=== PATIENT | female | born 1965 | race African-American/Black ===

== ENCOUNTER 2017-01-22 03:20 | Inpatient (IN) | payer OTHER, MEDICARE ==
[2017-01-22] VITALS (13 sets, daily range): BP systolic 114–241; BP diastolic 62–130; PULSE 65–98; RESP 16–22; TEMP 97.7–101.2; O2SAT 96–100
[~2017-01-22] VITALS: Ht 170.2 cm; Wt 70.0 kg
[~2017-01-22 03:20] MED LIST: CLON-481 PO; DOXA1 PO; FERR65TA PO; FURO1TAB93 PO; HYDR100T2 PO; KLOR20TA6 PO; LABE200 PO; LOSA25TA31 PO; PRED5TAB PO; TRAM100T19 PO
[2017-01-22] MEDS ORDERED: PANT40TA3 PO (04:00)
[2017-01-22] MEDS ORDERED: PRED5TAB PO (04:00)
[2017-01-22] MEDS ORDERED: LABE200T2 PO (04:00)
[2017-01-22] MEDS ORDERED: CLON0.3T PO (04:00)
[2017-01-22] MEDS ORDERED: LOSA25TA PO (04:00)
[2017-01-22] MEDS ORDERED: DOXA1TAB43 PO (04:00)
[2017-01-22] MEDS ORDERED: HYDR-3801 PO (04:00)
[2017-01-22] MEDS ORDERED: MYCO500T PO (04:00)
[2017-01-22] MEDS ORDERED: ONDANSETRON HCL 4 MG/2 ML VIAL IVP ONE (04:15)
[2017-01-22] MEDS ORDERED: SODIUM CHLORIDE 0.9% FLUSH 5 ML FLUSH IVF PRN (04:15)
[2017-01-22] MEDS ORDERED: MORPHINE SULFATE 4 MG/ML INJ IV PUSH ONE ×2 (04:15→05:30)
--- NOTE | 2017-01-22 04:16 | PD ---
HPI Chief Complaint: Abdominal Pain Time Seen by Provider: 04:02 Travel History International Travel<30 days: No Contact w/Intl Traveler<30days: No Traveled to known affect area: No History of Present Illness HPI The patient is a 51-year-old after [place] female who presents to the emergency department for abdominal pain. The patient states she developed periumbilical to lower abdominal pain approximately 8:30 PM tonight. The patient states the pain started suddenly, is located in the periumbilical area, however, radiates generally. The patient does note multiple episodes of nausea and vomiting secondary to the abdominal pain, but denies any diarrhea. The patient denies any dysuria, frequency, urgency, or hematuria. The patient denies any vaginal bleeding or vaginal discharge. The patient does have a history of previous total abdominal hysterectomy, but denies any other abdominal surgeries. She denies any fever, chills, or sweats. The patient is on medications for lupus and is followed by Dr. Anaya. The patient also has a history of chronic kidney disease and is followed by Dr. 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 The patient's primary physician is Dr. Anival Garcia. [facility] Past Medical History Anemia: Yes Arthritis: Yes (RA) Autoimmune Disease: Yes (LUPUS, SJOGRENS, RAYNAUDS ) Blood Disorders: Yes Anxiety: No Depression: No Cancer: No Cardiovascular Problems: Yes (HTN) High Cholesterol: Yes Chest Pain: Yes Congestive Heart Failure: Yes (2013) Diminished Hearing: No Endocrine: Yes Fibromyalgia: Yes Genitourinary: Yes (RENAL INSUFFICIENCY, STAGE 3) Hypertension: Yes Immune Disorder: Yes (LUPUS) Implanted Vascular Access Dvce: No Musculoskeletal: Yes Neurologic: No Psychiatric: No Reproductive: No Respiratory: No Immunizations Current: No Migraines: Yes Thyroid Disease: No ?: Not Menopausal: Yes : 4 Para: 3 Miscarriage: 1 Past Surgical History AICD: No Arteriovenous Shunt: No Cardiac Surgery: No Ear Surgery: No Endocrine Surgery: No Eye Surgery: No Genitourinary Surgery: No Gynecologic Surgery: Yes (HYSTERECTOMY, LEFT BREAST LUMP REMOVED) Hysterectomy: Yes Insulin Pump: No Joint Replacement: No Pacemaker: No Thoracic Surgery: No Other Surgery: Yes (see hx) Social History Alcohol Use: Yes (SOCIALLY) Tobacco Use: No Substance Use: No Allergies-Medications (Allergen,Severity, Reaction): Coded Allergies: Codeine (Verified Allergy, Severe, 01/22/17) RASH Lisinopril (Verified Allergy, Severe, 01/22/17) *MDRO Multi-Drug Resistant Organism (Verified Allergy, Unknown, 01/22/17) MRSA sputum Reported Meds & Prescriptions Reported Meds & Active Scripts Active Reported Losartan (Losartan Potassium) 25 Mg Tab 12.5 Mg PO DAILY Clonidine (Clonidine HCl) 0.3 Mg Tab 0.3 Mg PO TID Labetalol (Labetalol HCl) 200 Mg Tab 200 Mg PO TID Doxazosin (Doxazosin Mesylate) 8 Mg Tab 8 Mg PO DAILY Pantoprazole (Pantoprazole Sodium) 40 Mg Tab 40 Mg PO DAILY Mycophenolate (Mycophenolate Mofetil) 500 Mg Tab 500 Mg PO BID Hydralazine (Hydralazine HCl) 100 Mg Tab 100 Mg PO Q8HR Take with meals Prednisone 5 Mg Tab 5 Mg PO DAILY Review of Systems Except as stated in HPI: all other systems reviewed are Neg General / Constitutional: No: Fever HENT: No: Lightheadedness Cardiovascular: No: Chest Pain or Discomfort Respiratory: No: Shortness of Breath Gastrointestinal: Positive: Nausea, Vomiting, Abdominal Pain, No: Diarrhea, Constipation, Changes in Bowel Habits Genitourinary: No: Urgency, Frequency, Dysuria, Hematuria, Discharge, Vaginal Bleeding Musculoskeletal: No: Weakness Neurologic: No: Weakness Physical Exam Narrative GENERAL: Awake, alert, pleasant 51-year-old female appears her stated age and appears in mild discomfort. SKIN: Warm and dry. HEAD: Atraumatic. Normocephalic. EYES: No injection or drainage. ENT: No nasal bleeding or discharge. Mucous membranes pink and moist. NECK: Trachea midline. No JVD. CARDIOVASCULAR: Regular rate and rhythm. No murmur appreciated. RESPIRATORY: No accessory muscle use. Clear to auscultation. Breath sounds equal bilaterally. GASTROINTESTINAL: Abdomen soft, tender palpation left lower quadrant. No rebound tenderness. MUSCULOSKELETAL: No obvious deformities. No clubbing. No cyanosis. No edema. NEUROLOGICAL: Awake and alert. No obvious cranial nerve deficits. Motor grossly within normal limits. Normal speech. PSYCHIATRIC: Appropriate mood and affect; insight and judgment normal. Data Data Last Documented VS Vital Signs Date Time Temp Pulse Resp B/P Pulse Ox O2 Delivery O2 Flow Rate FiO2 01/22/17 05:31 76 18 210/109 100 Room Air 01/22/17 03:27 97.7 Orders Complete Blood Count With Diff (01/22/17 04:08) Comprehensive Metabolic Panel (01/22/17 04:08) Lipase (01/22/17 04:08) Lactic Acid (01/22/17 04:08) Urinalysis - C+S If Indicated (01/22/17 04:08) Ct Abd/Pel W/O Iv Contrast (01/22/17 04:08) Iv Access Insert/Monitor (01/22/17 04:08) Ecg Monitoring (01/22/17 04:08) Oximetry (01/22/17 04:08) Morphine Inj (Morphine Inj) (01/22/17 04:15) Ondansetron Inj (Zofran Inj) (01/22/17 04:15) Sodium Chlor 0.9% 1000 Ml Inj (Ns 1000 M (01/22/17 04:08) Sodium Chloride 0.9% Flush (Ns Flush) (01/22/17 04:15) Labetalol Inj (Trandate Inj) (01/22/17 05:15) Morphine Inj (Morphine Inj) (01/22/17 05:30) Admit Order (Ed Use Only) (01/22/17 05:34) Pantoprazole Inj (Protonix Inj) (01/22/17 06:00) Vital Signs (Adult) Q4H (01/22/17 05:32) Activity Oob Ad Kalyani (01/22/17 05:32) Intake + Output PAWAN.QSHIFT (01/22/17 05:32) Sodium Chlor 0.9% 1000 Ml Inj (Ns 1000 M (01/22/17 05:32) Sodium Chloride 0.9% Flush (Ns Flush) (01/22/17 05:45) Sodium Chloride 0.9% Flush (Ns Flush) (01/22/17 09:00) Ondansetron Inj (Zofran Inj) (01/22/17 05:45) Bisacodyl Supp (Dulcolax Supp) (01/22/17 05:45) Comprehensive Metabolic Panel (01/23/17 06:00) Complete Blood Count With Diff (01/23/17 06:00) Scd Bilateral/Knee High PAWAN.BID (01/22/17 05:32) Ty Bilateral/Knee High PAWAN.QSHIFT (01/22/17 05:32) Morphine Inj (Morphine Inj) (01/22/17 05:45) Morphine Inj (Morphine Inj) (01/22/17 05:45) Acetaminophen Inj (Ofirmev Inj) (01/22/17 06:00) Inpatient Certification (01/22/17 ) Prochlorperazine Inj (Compazine Inj) (01/22/17 05:45) Labs Laboratory Tests Test 01/22/17 01/22/17 01/22/17 04:15 04:35 05:20 White Blood Count 6.9 TH/MM3 Red Blood Count 3.98 MIL/MM3 Hemoglobin 11.6 GM/DL Hematocrit 34.6 % Mean Corpuscular Volume 86.9 FL Mean Corpuscular Hemoglobin 29.1 PG Mean Corpuscular Hemoglobin 33.5 % Concent Red Cell Distribution Width 12.3 % Platelet Count 186 TH/MM3 Mean Platelet Volume 9.4 FL Neutrophils (%) (Auto) 88.7 % Lymphocytes (%) (Auto) 6.6 % Monocytes (%) (Auto) 4.5 % Eosinophils (%) (Auto) 0.1 % Basophils (%) (Auto) 0.1 % Neutrophils # (Auto) 6.1 TH/MM3 Lymphocytes # (Auto) 0.5 TH/MM3 Monocytes # (Auto) 0.3 TH/MM3 Eosinophils # (Auto) 0.0 TH/MM3 Basophils # (Auto) 0.0 TH/MM3 CBC Comment DIFF FINAL Differential Comment Sodium Level 141 MEQ/L Potassium Level 3.2 MEQ/L Chloride Level 104 MEQ/L Carbon Dioxide Level 28.3 MEQ/L Anion Gap 9 MEQ/L Blood Urea Nitrogen 24 MG/DL Creatinine 1.49 MG/DL Estimat Glomerular Filtration 44 ML/MIN Rate Random Glucose 111 MG/DL Calcium Level 9.0 MG/DL Total Bilirubin 0.5 MG/DL Aspartate Amino Transf 22 U/L (AST/SGOT) Alanine Aminotransferase 23 U/L (ALT/SGPT) Alkaline Phosphatase 75 U/L Total Protein 6.8 GM/DL Albumin 3.8 GM/DL Lipase 225 U/L Lactic Acid Level 0.7 mmol/L Urine Color YELLOW Urine Turbidity CLEAR Urine pH 5.5 Urine Specific [place] 1.013 Urine Protein 100 mg/dL Urine Glucose (UA) NEG mg/dL Urine Ketones NEG mg/dL Urine Occult Blood NEG Urine Nitrite NEG Urine Bilirubin NEG Urine Urobilinogen LESS THAN 2.0 MG/DL Urine Leukocyte Esterase NEG Urine RBC 1 /hpf Urine WBC 1 /hpf Urine Squamous Epithelial <1 /hpf Cells Urine Bacteria RARE /hpf Urine Mucus FEW /lpf Microscopic Urinalysis Comment CULT NOT INDICATED Urine Opiates Screen NEG Urine Barbiturates Screen NEG Urine Amphetamines Screen NEG Urine Benzodiazepines Screen NEG Urine Cocaine Screen NEG Urine Cannabinoids Screen NEG MDM Medical Decision Making Medical Screen Exam Complete: Yes Emergency Medical Condition: Yes Medical Record Reviewed: Yes Interpretation(s) EKG reveals normal sinus rhythm with a rate of 71. Q wave noted in lead V1 and V2. Laboratory Tests Test 01/22/17 01/22/17 04:15 04:35 White Blood Count 6.9 TH/MM3 Red Blood Count 3.98 MIL/MM3 Hemoglobin 11.6 GM/DL Hematocrit 34.6 % Mean Corpuscular Volume 86.9 FL Mean Corpuscular Hemoglobin 29.1 PG Mean Corpuscular Hemoglobin 33.5 % Concent Red Cell Distribution Width 12.3 % Platelet Count 186 TH/MM3 Mean Platelet Volume 9.4 FL Neutrophils (%) (Auto) 88.7 % Lymphocytes (%) (Auto) 6.6 % Monocytes (%) (Auto) 4.5 % Eosinophils (%) (Auto) 0.1 % Basophils (%) (Auto) 0.1 % Neutrophils # (Auto) 6.1 TH/MM3 Lymphocytes # (Auto) 0.5 TH/MM3 Monocytes # (Auto) 0.3 TH/MM3 Eosinophils # (Auto) 0.0 TH/MM3 Basophils # (Auto) 0.0 TH/MM3 CBC Comment DIFF FINAL Differential Comment Sodium Level 141 MEQ/L Potassium Level 3.2 MEQ/L Chloride Level 104 MEQ/L Carbon Dioxide Level 28.3 MEQ/L Anion Gap 9 MEQ/L Blood Urea Nitrogen 24 MG/DL Creatinine 1.49 MG/DL Estimat Glomerular Filtration 44 ML/MIN Rate Random Glucose 111 MG/DL Calcium Level 9.0 MG/DL Total Bilirubin 0.5 MG/DL Aspartate Amino Transf 22 U/L (AST/SGOT) Alanine Aminotransferase 23 U/L (ALT/SGPT) Alkaline Phosphatase 75 U/L Total Protein 6.8 GM/DL Albumin 3.8 GM/DL Lipase 225 U/L Lactic Acid Level 0.7 mmol/L Differential Diagnosis Differential diagnosis includes pancreatitis, gastritis, diverticulitis, nephrolithiasis, pyelonephritis, mesenteric ischemia, dissection. Narrative Course IV was established, labs are drawn and sent, and the patient was placed on cardiac telemetry monitoring and continuous pulse oximetry monitoring. The patient was administered morphine, Zofran, and IV fluids. Non-contrast CT of the abdomen and pelvis was ordered. White count is normal. CT reveals possible partial small bowel obstruction with dilated bowel, patient does have previous history of complete hysterectomy. Therefore, patient will be kept nothing by mouth and will be admitted for IV fluids and reevaluation of her symptoms. The patient's blood pressure was elevated, she is on multiple medications for blood pressure, therefore, was administered labetalol 20 mg intravenously. Physician Communication Physician Communication The patient has [employer], therefore, [facility] were paged for admission. Diagnosis Primary Impression: Partial small bowel obstruction Additional Impressions: Abdominal pain Qualified Code: R10.84 - Generalized abdominal pain CKD (chronic kidney disease), stage III Admitting Information Admitting Physician Requests: Admit Scripts Prednisone 5 Mg Tab5 Mg PO EVERY OTHER DAY 30 Days Prov:Ina Siddiqui MD 01/23/17 Condition: Stable Italo Domínguez MD Jan 22, 2017 04:16
[2017-01-22] MEDS: SODIUM CHLOR 0.9% 1000 ML INJ 1,000 ML IV SCH ×4 (04:24→19:44)
--- NOTE | 2017-01-22 04:41 | RADRPT ---
EXAM DATE/TIME: 01/22/2017 04:24 [facility] COMPARISON: CT ABDOMEN & PELVIS W CONTRAST, June 15, 2014, 15:47. CT ABDOMEN & PELVIS W/O CONTRAST, April 18, 014, 3:50. INDICATIONS : Abdominal pain with vomiting. ORAL CONTRAST: No oral contrast ingested. RADIATION DOSE: 5.89 CTDIvol (mGy) MEDICAL HISTORY : Hypertension. Lupus. Renal insufficiency.Endometriosis. RA. SURGICAL HISTORY : Hysterectomy. ENCOUNTER: Initial ACUITY: 1 day PAIN SCALE: 5/10 LOCATION: Abdomen TECHNIQUE: Volumetric scanning of the abdomen and pelvis was performed. Using automated exposure control and ad justment of the mA and/or kV according to patient size, radiation dose was kept as low as reasonably achievable to obtain optimal diagnostic quality images. FINDINGS: LOWER LUNGS: The visualized lower lungs are clear. LIVER: Homogeneous density without lesion for noncontrasted technique. There is no dilation of the biliary tree. No calcified gallstones. SPLEEN: Normal size without lesion. PANCREAS: Within normal limits. KIDNEYS: Prominent extrarenal pelvis on the left side and prominence of the collecting system of the left kidn ey unchanged from prior exams. No evidence of hydronephrosis on the right side. No calcified renal stones. ADRENAL GLANDS: Within normal limits. VASCULAR: There is no aortic aneurysm. BOWEL/MESENTERY: There is several dilated loops of small bowel containing fluid, measuring up to 3.1 cm in diameter. Stool is seen in the right and left colon. No evidence of free fluid. ABDOMINAL WALL: Within normal limits. RETROPERITONEUM: There is no lymphadenopathy. BLADDER: No wall thickening or mass. REPRODUCTIVE: Within normal limits. INGUINAL: There is no lymphadenopathy or hernia. MUSCULOSKELETAL: Within normal limits for patient age. CONCLUSION: 1. Nonspecific appearance the bowel with mild dilation of mid and distal small bowel loops measuring up to 3.1 cm. Differential considerations include partial obstruction and ileus. 2. Prominent extrarenal pelvis and mild dilation of the collecting system of the left kidney is stabl e when compared to prior CT scans dating back to 2013. No calcified renal stones. Umer Joyce MD on January 22, 2017 at 4:32 Board Certified Radiologist. This report was verified electronically.
[2017-01-22 04:46] LABS: AUTOMATED NEUTROPHIL # 6.1 TH/MM3 (1.8-7.7); BASOPHIL % 0.1 % (0.0-2.0); EOSINOPHIL % 0.1 % (0.0-4.0); HEMATOCRIT 34.6 % (35.0-46.0); HEMO FLAGS DIFF FINAL; LYMPH % 6.6 % (9.0-44.0); LYMPHOCYTE # 0.5 TH/MM3 (1.0-4.8); MEAN CELL VOLUME 86.9 FL (80.0-100.0); MEAN CORPUSCULAR HEMOGLOBIN 29.1 PG (27.0-34.0); MEAN CORPUSCULAR HGB CONC 33.5 % (32.0-36.0); MONO % 4.5 % (0.0-8.0); NEUT % 88.7 % (16.0-70.0); PLATELET COUNT 186 TH/MM3 (150-450); RED BLOOD COUNT 3.98 MIL/MM3 (4.00-5.30); RED CELL DISTRIBUTION WIDTH 12.3 % (11.6-17.2); WHITE BLOOD COUNT 6.9 TH/MM3 (4.0-11.0)
[2017-01-22 05:10] LABS: ANION GAP 9 MEQ/L (5-15); AST (GOT) 22 U/L (15-37); BICARBONATE 28.3 MEQ/L (21.0-32.0); BLOOD UREA NITROGEN 24 MG/DL (7-18); CHLORIDE 104 MEQ/L (98-107); GLOMERULAR FILTRATION RATE 44 ML/MIN (>89); POTASSIUM 3.2 MEQ/L (3.5-5.1); SODIUM (NA) 141 MEQ/L (136-145)
[2017-01-22 05:13] LABS: ALKALINE PHOSPHATASE 75 U/L (45-117); ALT (GPT) 23 U/L (10-53); TOTAL BILIRUBIN ADULT 0.5 MG/DL (0.2-1.0)
[2017-01-22] MEDS ORDERED: LABETALOL HCL 100 MG/20 ML VIAL IV PUSH ONE (05:15)
[2017-01-22] MEDS ORDERED: SODIUM CHLORIDE 0.9% FLUSH 5 ML FLUSH FLUSH PRN (05:45)
[2017-01-22] MEDS ORDERED: ONDANSETRON HCL 4 MG/2 ML VIAL IVP PRN (05:45)
[2017-01-22] MEDS ORDERED: PROCHLORPERAZINE INJ 10 MG/2 ML VIAL IVS PRN (05:45)
[2017-01-22] MEDS ORDERED: MORPHINE SULFATE 4 MG/ML INJ IV PRN ×3 (05:45→12:00)
[2017-01-22] MEDS ORDERED: BISACODYL 10 MG SUPP PR PRN (05:45)
[2017-01-22] MEDS: PANTOPRAZOLE SODIUM 40 MG VIAL IV PUSH SCH ×2 (05:55→17:24)
[2017-01-22] MEDS ORDERED: ACETAMINOPHEN 1000 MG/100 ML VIAL IV PRN (06:00)
--- NOTE | 2017-01-22 08:26 | HHI.HP ---
[facility] Service [facility] Primary Care Physician Colin Garcia M.D. Admission Diagnosis partial small bowel obstruction, CKD 3, hypertension Diagnoses: Chief Complaint: nausea Travel History International Travel<30 Days: No Contact w/Intl Traveler <30 Da: No Traveled to Known Affected Are: No History of Present Illness Patient is 51 years old female with known history of SLE, ff by Dr. Hampton, followed by a Dr. Maloney as outpatient, GERD, who presented to the ER complaining of nausea and vomiting with periumbilical pain which started around 8 PM last night. Patient states that her usual bowel movement is every 2-3 days however she did have a bowel movement bowel movement this morning. Patient states compliance with her, multiple blood pressure medications. Persistence of umbilical pain with nausea prompted coming to ER. At ER her blood pressure was 200/120 and was given labetalol 20 mg IV 1. Her renal functions is near baseline. Patient still making good urine. Patient admitted for further evaluation and management Past Family Social History Past Medical History Hypertension History of his SLE followed by Dr. Fournier History of hypertension History of chronic kidney disease stage 2-3 GERD Past Surgical History Hysterectomy Reported Medications CellCept 500 mg twice a day Prednisone 2.5 mg every other day Hydralazine 100 mg 3 times a day Doxazosin 8 mg at bedtime Clonidine 0.3 mg 3 times a day Protonix 40 mg daily Losartan 25 mg daily Allergies: Coded Allergies: Codeine (Verified Allergy, Severe, 01/22/17) RASH Lisinopril (Verified Allergy, Severe, 01/22/17) *MDRO Multi-Drug Resistant Organism (Verified Allergy, Unknown, 01/22/17) MRSA sputum Family History Positive family history of colon cancer Social History Denies smoking Very occasional wine Denies any polysubstance abuse Physical Exam Vital Signs Vital Signs Date Time Temp Pulse Resp B/P Pulse Ox O2 Delivery O2 Flow Rate FiO2 01/22/17 07:32 71 22 241/121 96 01/22/17 05:55 70 18 191/99 100 Room Air 01/22/17 05:31 76 18 210/109 100 Room Air 01/22/17 03:27 97.7 65 16 201/104 100 Room Air Physical Exam GENERAL: Awake and alert T well-developed patient, in no apparent distress. Blood pressure 190/100 SKIN: No rashes, ecchymoses or lesions. Cool and dry. HEAD: Atraumatic. Normocephalic. No temporal or scalp tenderness. EYES: Pupils equal round and reactive. Extraocular motions intact. No scleral icterus. No injection or drainage. ENT: Nose without bleeding, purulent drainage or septal hematoma. Throat without erythema, tonsillar hypertrophy or exudate. Uvula midline. Airway patent. NECK: Trachea midline. No JVD or lymphadenopathy. Supple, CARDIOVASCULAR: Regular rate and rhythm without murmurs, gallops, or rubs. RESPIRATORY: Clear to auscultation. Breath sounds equal bilaterally. No wheezes , rales, or rhonchi. GASTROINTESTINAL: Abdomen soft, + tender periumbilical area ,distended, MUSCULOSKELETAL: Extremities without clubbing, cyanosis, or edema. No joint tenderness, effusion, or edema noted. No calf tenderness. Negative Homans sign bilaterally. Moves all extremities spontaneously NEUROLOGICAL: Awake and alert. Cranial nerves II through XII intact. Motor and sensory grossly within normal limits. Five out of 5 muscle strength in all muscle groups. Normal speech. Laboratory Laboratory Tests Test 01/22/17 01/22/17 04:15 04:35 White Blood Count 6.9 Red Blood Count 3.98 Hemoglobin 11.6 Hematocrit 34.6 Mean Corpuscular Volume 86.9 Mean Corpuscular Hemoglobin 29.1 Mean Corpuscular Hemoglobin 33.5 Concent Red Cell Distribution Width 12.3 Platelet Count 186 Mean Platelet Volume 9.4 Neutrophils (%) (Auto) 88.7 Lymphocytes (%) (Auto) 6.6 Monocytes (%) (Auto) 4.5 Eosinophils (%) (Auto) 0.1 Basophils (%) (Auto) 0.1 Neutrophils # (Auto) 6.1 Lymphocytes # (Auto) 0.5 Monocytes # (Auto) 0.3 Eosinophils # (Auto) 0.0 Basophils # (Auto) 0.0 CBC Comment DIFF FINAL Differential Comment Sodium Level 141 Potassium Level 3.2 Chloride Level 104 Carbon Dioxide Level 28.3 Anion Gap 9 Blood Urea Nitrogen 24 Creatinine 1.49 Estimat Glomerular Filtration 44 Rate Random Glucose 111 Calcium Level 9.0 Total Bilirubin 0.5 Aspartate Amino Transf 22 (AST/SGOT) Alanine Aminotransferase 23 (ALT/SGPT) Alkaline Phosphatase 75 Total Protein 6.8 Albumin 3.8 Lipase 225 Lactic Acid Level 0.7 Result Diagram: 01/22/17 0415 01/22/175 Imaging Last Impressions Abdomen/Pelvis CT 01/22/178 Signed Impressions: Service Date/Time: Sunday, January 22, 2017 04:24 - CONCLUSION: 1. Nonspecific appearance the bowel with mild dilation of mid and distal small bowel loops measuring up to 3.1 cm. Differential considerations include partial obstruction and ileus. 2. Prominent extrarenal pelvis and mild dilation of the collecting system of the left kidney is stable when compared to prior CT scans dating back to 2013. No calcified renal stones. Umer Joyce MD Assessment and Plan Assessment and Plan 51-year-old female with known history of hypertension, chronic kidney see the disease presenting with SBO- Nausea vomiting CT shows partial small bowel obstruction We'll get a repeat abdominal film x-ray upright and supine. consider NGT placement after XR Follow clinically. If persists will consider GI versus general surgery consult If no further episodes of nausea and vomiting will start patient on clears IVF Hypokalemia- recheck BMP Chronic constipation Colace 100 mg po bid patient is scheduled to have a colonoscopy as OP Hypertensive urgency - contributing to Nausea vomiting Will admit to IMC as patient may need IV meds for blood pressure control We'll start patient on labetalol 20 mg IV when necessary we'll reintroduce her blood pressure medications -clonidine with sips of water We'll continue on IV fluids - gentle rate 50 cc/hr History of SLE Chronic kidney disease secondary to lupus nephritis or hypertensive kidney disease Gentle IV fluid- consulted Continue on her prednisone maintenance 2.5 mg every other day- consider change to IV if won't tolerate po GERD on PPI IV Bilateral teds SCDs for DVT prophylaxis Discussed Condition With Patient Physician Certification 2 Midnight Certification Type: Admission for Inpatient Services Order for Inpatient Services The services are ordered in accordance with Medicare regulations or non- Medicare payer requirements, as applicable. In the case of services not specified as inpatient-only, they are appropriately provided as inpatient services in accordance with the 2-midnight benchmark. Estimated LOS (days): 3 days is the estimated time the patient will need to remain in the hospital, assuming treatment plan goals are met and no additional complications. Post-Hospital Plan: Not yet determined Ina Siddiqui MD Jan 22, 2017 08:26 Ina Siddiqui MD Jan 22, 2017 08:26
[2017-01-22 08:48] LABS: BACTERIA, URINE RARE /hpf; BLOOD, URINE NEG (NEG); COMMENT (UR) CULT NOT INDICATED; CULTURE IF INDICATED CULT NOT INDICATED; GLUCOSE,URINE NEG (NEG); KETONE, URINE NEG (NEG); MUCUS URINE FEW /lpf (OCC); NITRITE,URINE NEG (NEG); PH, URINE 5.5 (5.0-8.5); SQUAMOUS EPITHELIAL CELL URINE <1 /hpf (0-5); URINE COLOR YELLOW (YELLW/STRAW)
[2017-01-22] MEDS ORDERED: PILL SPLITTER OTHER PRN (09:00)
[2017-01-22] MEDS: SODIUM CHLORIDE 0.9% FLUSH 5 ML FLUSH FLUSH SCH ×2 (09:00→19:43)
[2017-01-22] MEDS ORDERED: LABETALOL HCL 100 MG/20 ML VIAL IV PUSH PRN (09:00)
[2017-01-22] MEDS ORDERED: predniSONE 5 MG TAB PO SCH (09:00)
--- NOTE | 2017-01-22 09:14 | RADRPT ---
EXAM DATE/TIME: 01/22/2017 08:46 [facility] COMPARISON: CHEST SINGLE AP, February 19, 2015, 23:31. INDICATIONS : Heart size MEDICAL HISTORY : Hypertension. Lupus. Renal insufficiency.Endometriosis. RA. SURGICAL HISTORY : Hysterectomy. ENCOUNTER: Initial ACUITY: 1 day PAIN SCORE: 5/10 LOCATION: Bilateral chest FINDINGS: Questionable 1 cm left upper lobe nodule. Lungs otherwise appear clear. No pleural effusion. No pneum othorax. Heart size normal. CONCLUSION: Questionable small left upper lobe nodule. Noncontrast chest CT recommended. Normal heart size. Francisco Javier Gurrola MD on January 22, 2017 at 9:12 Board Certified Radiologist. This report was verified electronically.
--- NOTE | 2017-01-22 09:30 | RADRPT ---
EXAM DATE/TIME: 01/22/2017 08:51 [facility] COMPARISON: CT ABDOMEN & PELVIS W/O CONTRAST, January 22, 2017, 4:24. INDICATIONS : Obstruction and abdomen pain since yesterday MEDICAL HISTORY : Hypertension. Lupus. Renal insufficiency.Endometriosis. RA. SURGICAL HISTORY : Hysterectomy. ENCOUNTER: Initial ACUITY: 1 day PAIN SCORE: 10/10 LOCATION: Bilateral Abdomen FINDINGS: Succus entericus loops of jejunum with moderate distention again noted. Colon is decompressed. There is moderate gastric distention. CONCLUSION: Small bowel obstruction pattern. No free air. Stomach is distended and the patient may benefit from n asogastric tube decompression. No definite change from the CT earlier today. Francisco Javier Gurrola MD on January 22, 2017 at 9:26 Board Certified Radiologist. This report was verified electronically.
[2017-01-22] MEDS: cloNIDine HCL 0.3 MG TAB PO SCH ×3 (09:37→19:44)
[2017-01-22] MEDS: hydrALAZINE HCL 100 MG TAB PO SCH ×3 (09:37→19:44)
[2017-01-22] MEDS: LOSARTAN 25 MG TAB PO SCH (09:38)
[2017-01-22 09:47] LABS: ALT (GPT) 22 U/L (10-53); ANION GAP 10 MEQ/L (5-15); AST (GOT) 23 U/L (15-37); BICARBONATE 26.5 MEQ/L (21.0-32.0); BLOOD UREA NITROGEN 20 MG/DL (7-18); CHLORIDE 107 MEQ/L (98-107); GLOMERULAR FILTRATION RATE 50 ML/MIN (>89); POTASSIUM 3.5 MEQ/L (3.5-5.1); SODIUM (NA) 143 MEQ/L (136-145)
[2017-01-22 09:50] LABS: ALKALINE PHOSPHATASE 77 U/L (45-117); TOTAL BILIRUBIN ADULT 0.5 MG/DL (0.2-1.0)
[2017-01-22] MEDS ORDERED: niCARdipine INJ 25 MG in SODIUM CHLOR 0.9% 250 ML INJ 250 ML IV SCH (10:30)
[2017-01-22] MEDS: MORPHINE SULFATE 4 MG/ML INJ IV PRN ×2 (10:41→23:27)
[2017-01-22] MEDS ORDERED: cloNIDine HCL 0.2 MG/24 HR PATCH TD SCH (12:00)
[2017-01-22 12:25] LABS: AMPHETAMINE, URINE NEG (NEG); BARBITURATES, URINE NEG (NEG); COCAINE, URINE NEG (NEG)
[2017-01-22] MEDS ORDERED: CHLORHEXIDINE GLUCONATE 2 % 1 PACK (2 CLOTHS)(extra cloths) TOP PRN (13:00)
--- NOTE | 2017-01-22 13:53 | MB ---
cc: DEYA CRUZ MD DATE OF CONSULTATION: 01/22/2017 REASON FOR CONSULTATION Chronic kidney disease and uncontrolled hypertension. HISTORY OF PRESENT ILLNESS This is a 51-year-old female with a past medical history of hypertension, chronic kidney disease, history of lupus, history of lupus nephritis with focal proliferative glomerulonephritis, history of acute kidney injury in the past and now chronic kidney disease, who came to the hospital with complaint of lower abdominal pain and nausea and vomiting. I was called to see the patient for the management of renal disease and hypertension. The patient has been following with me in the office and she has been quite stable with her CellCept and low-dose prednisone. She is also following with Dr. Hampton for her lupus. She has been taking her blood pressure medicine. For the last 2-3 days she was having this lower abdominal pain but it started more last night to the point that she could not tolerate it. She was also vomiting and vomited 4-5 times yesterday and was not able to keep her medications down. When she came in here her blood pressure was quite high. She vomited 2-3 times today. The pain in her abdomen is in the lower abdominal area and is radiating to her sides, mainly on the left side. She denied any history of trauma. There is no diarrhea. No history of fever. No shortness of breath. No chest pain. She does not have any dysuria, hematuria or difficulty in passing urine. She claims that she has been taking her medications regularly. PAST MEDICAL HISTORY 1. Hypertension. 2. History of lupus. 3. Chronic kidney disease with lupus nephritis. 4. Gastroesophageal reflux disease. 5. History of anemia. PAST SURGICAL HISTORY 1. Hysterectomy. 2. Kidney biopsy. REVIEW OF SYSTEMS The patient has no history of fever. No sore throat or shortness of breath. No chest pain. No palpitation. She has nausea, vomiting and lower abdominal pain going on for the last 2-3 days but started more yesterday and she started vomiting more yesterday and the pain increased in intensity. This is mainly in the lower abdomen going towards the left flank area. No dysuria, hematuria or difficulty in passing urine. There is no history of fever. SOCIAL HISTORY There is no history of smoking. Occasionally drinks alcoholic beverages. FAMILY HISTORY Positive for colon cancer. ALLERGIES 1. CODEINE. 2. LISINOPRIL. MEDICATIONS Currently she is on: 1. Normal saline at 50 an hour. 2. Cozaar 25 mg once a day. 3. Prednisone 2.5 mg daily. 4. Protonix 40 mg q.12h. 5. Catapres 0.2 mg q.8h. 6. Hydralazine 100 mg q.8h. 7. Zofran as needed. 8. Dulcolax as needed. 9. Compazine as needed. 10.Trandate as needed. 11.Morphine as needed. PHYSICAL EXAMINATION GENERAL: The patient is awake and alert. She is still having nausea. VITAL SIGNS: Her last blood pressure is 241/121, temperature 97, pulse 71. Oxygen saturation on room air 96-100%. HEENT: Pupils equally reacting to light. Non-icteric sclera. Conjunctiva normal. NECK: Supple. JVD is not elevated. LUNGS: The patient has bilateral good air entry with occasional wheezing. HEART: S1, S2, regular rhythm. ABDOMEN: Soft, lax. Lower abdominal tenderness mainly in the left lower quadrant. There is no rebound or rigidity. Bowel sounds positive. EXTREMITIES: No pedal edema. INVESTIGATIONS WBC count 6.9, hemoglobin 11.6, platelet count 186, neutrophils 88.7. Sodium 143, potassium 3.5, chloride 107, bicarb 26.5, BUN 20, creatinine 1.35, total protein 6.2, albumin 3.4. Urinalysis showing protein of 100. IMAGING STUDIES The patient had an abdominal x-ray done which shows small bowel obstruction. No free air. The stomach was distended. A non-contrast CT is recommended. Chest x-ray was done which shows left upper lobe nodule. CT scan of the abdomen and pelvis was done without IV contrast and it showed both kidneys, prominent extrarenal pelvis on the left side. No evidence of hydronephrosis. Nonspecific appearance of the bowel with mild dilatation. Possible partial obstruction and ileus. ASSESSMENT 1. Partial small-bowel obstruction. 2. Uncontrolled hypertension. 3. Chronic kidney disease. 4. History of lupus erythematosus. 5. Mild hypokalemia. 6. History of gastroesophageal reflux disease. PLAN The patient has hypertensive urgency, most likely related to not able to tolerate her p.o. medications. I will put her on a Catapres patch and also start her on nicardipine infusion since her blood pressure now is 240/120, which is very high and she will need to be in the intensive care unit for the time being until the blood pressure is better. Consider inserting an NG tube. The renal function seems to be at her baseline. If she is not tolerating the medication then she will need CellCept IV and also a steroid. The steroid I will start now. Thank you for the consultation. Over the weekend the patient will be followed by Dr. Cecil Garcia and I will be back on Wednesday. Deya Cruz MD AQBimal/BT /10:22 AM /1:16 PM
[2017-01-22] MEDS ORDERED: ACETAMINOPHEN 325 MG TAB PO PRN (16:45)
--- NOTE | 2017-01-22 17:37 | PD.CONS ---
HPI History of Present Illness This is a 51 year old female with known history of SLE, fibromyalgia, sjogrens disease, RA , CKD, GERD, who presented to the ER with complaints of acute severe persistent periumbilical pain "11 on the scale from 0-10" started started around 8 PM last night and persisted till the morning, associated with nausea and vomiting. Patient has chronic constipation and her normal bowel movement is every 2-3 days, however she did have a bowel movement bowel movement yesterday. Patient with history of hysterectomy. She states she had blueberries and pork with peanuts yesterday. She has poor dentition and doesn't chew properly. She denies previous history of this. Denies hematemesis or melena. . Abdomen/Pelvis CT 01/22/17 1. Nonspecific appearance the bowel with mild dilation of mid and distal small bowel loops measuring up to 3.1 cm. Differential considerations include partial obstruction and ileus. 2. Prominent extrarenal pelvis and mild dilation of the collecting system of the left kidney is stable when compared to prior CT scans dating back to 2013. Abdomen X-Ray 01/22/17 Small bowel obstruction pattern. No free air. Stomach is distended and the patient may benefit from nasogastric tube decompression. No definite change from the CT earlier today.GS on the case. Currently patient has NGT to LIWS and with bilious gastric out put. Pain has improved markedly. (Brayan Bledsoe) PFSH Past Medical History Hypertension fibromyalgia, sjogrens History of his SLE followed by Dr. Fournier History of hypertension History of chronic kidney disease stage 2-3 GERD Past Surgical History Hysterectomy (Brayan Bledsoe) Coded Allergies: Codeine (Verified Allergy, Severe, 01/22/17) RASH Lisinopril (Verified Allergy, Severe, 01/22/17) *MDRO Multi-Drug Resistant Organism (Verified Allergy, Unknown, 01/22/17) MRSA sputum Medications Current Medications Medications (Trade) Dose Ordered Sig/Kamila Route Start Time Stop Time Status Last Admin Pantoprazole Sodium 40 mg 40 mg Q12H IV PUSH 01/22/17 06:00 01/22/17 05:55 (NS 1000 ml Inj) 1,000 ml @ 50 mls/hr Q20H IV 01/22/17 05:32 01/22/17 05:55 (NS Flush) 2 ml UNSCH PRN FLUSH 01/22/17 05:45 (NS Flush) 2 ml BID FLUSH 01/22/17 09:00 (Zofran Inj) 4 mg Q6H PRN IVP 01/22/17 05:45 (Dulcolax Supp) 10 mg DAILY PRN MT 01/22/17 05:45 (Ofirmev Inj) 1,000 mg Q6H PRN IV 01/22/17 06:00 01/23/17 00:01 (Compazine Inj) 10 mg Q6H PRN IVS 01/22/17 05:45 01/22/17 07:26 (Catapres) 0.3 mg Q8HR PO 01/22/17 09:00 01/22/17 13:58 (Cozaar) 25 mg DAILY PO 01/22/17 09:00 01/22/17 09:38 (Apresoline) 100 mg Q8HR PO 01/22/17 09:00 01/22/17 13:58 (Trandate Inj) 10 mg Q6H PRN IV PUSH 01/22/17 09:00 (Morphine Inj) 0.5 mg Q4HR PRN IV 01/22/17 12:00 (Morphine Inj) 1 mg Q4HR PRN IV 01/22/17 12:00 01/22/17 10:41 (Pill Splitter) 1 ea UNSCH PRN OTHER 01/22/17 09:00 (Catapres-Tts 0.2 Mg Patch.7d) 1 patch Q7D TD 01/22/17 12:00 01/22/17 13:58 Miscellaneous Information 1 1 Q7D T-DERMAL 01/29/17 10:30 (Cardene Inj/NS 250 ml Inj) 260 ml @ 0 mls/hr TITRATE IV 01/22/17 10:30 01/22/17 13:59 (SoluCORTEF INJ) 100 mg Q12HR IV PUSH 01/22/17 21:00 Miscellaneous Information Patient in critical care unit? Ass... Q361D XX 01/22/17 13:00 01/22/17 13:00 (Chlorhexidine 2% Cloth) 3 pack DAILY@04 TOP 01/23/17 04:00 01/27/17 04:01 (Chlorhexidine 2% Cloth) 3 pack UNSCH PRN TOP 01/22/17 13:00 01/27/17 12:58 (Tylenol) 325 mg Q4H PRN PO 01/22/17 16:45 Family History Positive family history of colon cancer Social History Denies smoking Very occasional wine Denies any polysubstance abuse (Brayan Bledsoe) Review of Systems Constitutional: COMPLAINS OF: Fever, Chills Endocrine: DENIES: Polyuria Eyes: DENIES: Double Vision Ears, nose, mouth, throat: DENIES: Hoarseness Respiratory: DENIES: Shortness of breath Cardiovascular: DENIES: Lower Extremity Edema Gastrointestinal: COMPLAINS OF: Abdominal pain, Constipation, Nausea, Vomiting , DENIES: Black stools, Bloody stools, Odynophagia, Swelling of Abdomen, Heartburn, Hematemesis Genitourinary: DENIES: Urinary frequency, Hematuria Musculoskeletal: DENIES: Back pain Integumentary: DENIES: Jaundice Hematologic/lymphatic: DENIES: Bruising Immunologic/allergic: DENIES: Eczema Neurologic: DENIES: Abnormal gait Psychiatric: DENIES: Anxiety (Brayan Bledsoe) GI Exam Vitals I&O Vital Signs Date Time Temp Pulse Resp B/P Pulse Ox O2 Delivery O2 Flow Rate FiO2 01/22/17 16:00 93 01/22/17 16:00 101.2 92 16 146/83 99 01/22/17 14:00 98 01/22/17 13:00 98.4 86 18 159/90 100 01/22/17 13:00 86 01/22/17 12:00 87 19 179/99 98 Room Air 01/22/17 10:36 73 21 217/108 100 Room Air 01/22/17 10:00 74 20 239/130 99 Room Air 01/22/17 07:32 71 22 241/121 96 01/22/17 05:55 70 18 191/99 100 Room Air 01/22/17 05:31 76 18 210/109 100 Room Air 01/22/17 03:27 97.7 65 16 201/104 100 Room Air I/O 01/21/17 01/21/17 01/21/17 01/22/17 01/22/17 01/22/17 07:00 15:00 23:00 07:00 15:00 23:00 Intake Total 152 ml Output Total 250 ml Balance -98 ml Intake IV Total 152 ml Output Emesis 250 ml # Voids 1 Imaging Last Impressions Chest X-Ray 01/22/17818 Signed Impressions: Service Date/Time: Sunday, January 22, 2017 08:46 - CONCLUSION: Questionable small left upper lobe nodule. Noncontrast chest CT recommended. Normal heart size. Francisco Javier Gurrola MD Abdomen X-Ray 01/22/17818 Signed Impressions: Service Date/Time: Sunday, January 22, 2017 08:51 - CONCLUSION: Small bowel obstruction pattern. No free air. Stomach is distended and the patient may benefit from nasogastric tube decompression. No definite change from the CT earlier today. Francisco Javier Gurrola MD Abdomen/Pelvis CT 01/22/17 0408 Signed Impressions: Service Date/Time: Sunday, January 22, 2017 04:24 - CONCLUSION: 1. Nonspecific appearance the bowel with mild dilation of mid and distal small bowel loops measuring up to 3.1 cm. Differential considerations include partial obstruction and ileus. 2. Prominent extrarenal pelvis and mild dilation of the collecting system of the left kidney is stable when compared to prior CT scans dating back to 2013. No calcified renal stones. Umer Joyce MD Laboratory Test 01/22/17 01/22/17 01/22/17 01/22/17 04:15 04:35 05:20 09:00 White Blood Count 6.9 TH/MM3 Red Blood Count 3.98 MIL/MM3 Hemoglobin 11.6 GM/DL Hematocrit 34.6 % Mean Corpuscular Volume 86.9 FL Mean Corpuscular Hemoglobin 29.1 PG Mean Corpuscular Hemoglobin 33.5 % Concent Red Cell Distribution Width 12.3 % Platelet Count 186 TH/MM3 Mean Platelet Volume 9.4 FL Neutrophils (%) (Auto) 88.7 % Lymphocytes (%) (Auto) 6.6 % Monocytes (%) (Auto) 4.5 % Eosinophils (%) (Auto) 0.1 % Basophils (%) (Auto) 0.1 % Neutrophils # (Auto) 6.1 TH/MM3 Lymphocytes # (Auto) 0.5 TH/MM3 Monocytes # (Auto) 0.3 TH/MM3 Eosinophils # (Auto) 0.0 TH/MM3 Basophils # (Auto) 0.0 TH/MM3 CBC Comment DIFF FINAL Differential Comment Sodium Level 141 MEQ/L 143 MEQ/L Potassium Level 3.2 MEQ/L 3.5 MEQ/L Chloride Level 104 MEQ/L 107 MEQ/L Carbon Dioxide Level 28.3 MEQ/L 26.5 MEQ/L Anion Gap 9 MEQ/L 10 MEQ/L Blood Urea Nitrogen 24 MG/DL 20 MG/DL Creatinine 1.49 MG/DL 1.35 MG/DL Estimat Glomerular Filtration 44 ML/MIN 50 ML/MIN Rate Random Glucose 111 MG/DL 110 MG/DL Calcium Level 9.0 MG/DL 8.5 MG/DL Total Bilirubin 0.5 MG/DL 0.5 MG/DL Aspartate Amino Transf 22 U/L 23 U/L (AST/SGOT) Alanine Aminotransferase 23 U/L 22 U/L (ALT/SGPT) Alkaline Phosphatase 75 U/L 77 U/L Total Protein 6.8 GM/DL 6.2 GM/DL Albumin 3.8 GM/DL 3.4 GM/DL Lipase 225 U/L Lactic Acid Level 0.7 mmol/L Urine Color YELLOW Urine Turbidity CLEAR Urine pH 5.5 Urine Specific [place] 1.013 Urine Protein 100 mg/dL Urine Glucose (UA) NEG mg/dL Urine Ketones NEG mg/dL Urine Occult Blood NEG Urine Nitrite NEG Urine Bilirubin NEG Urine Urobilinogen LESS THAN 2.0 MG/DL Urine Leukocyte Esterase NEG Urine RBC 1 /hpf Urine WBC 1 /hpf Urine Squamous Epithelial <1 /hpf Cells Urine Bacteria RARE /hpf Urine Mucus FEW /lpf Microscopic Urinalysis Comment CULT NOT INDICATED Urine Opiates Screen NEG Urine Barbiturates Screen NEG Urine Amphetamines Screen NEG Urine Benzodiazepines Screen NEG Urine Cocaine Screen NEG Urine Cannabinoids Screen NEG Physical Examination HEENT: normocephalic; atraumatic; no jaundice. Throat is clear. NECK: Neck is supple, no JVD, no lymphadenopathy. CHEST: Chest is clear to auscultation and percussion. CARDIAC: Regular rate and rhythm with no murmur gallop or rubs. ABDOMEN: Soft, nondistended,mild tenderness; no hepatosplenomegaly; bowel sounds hypoactive EXTREMITIES: No clubbing, cyanosis, or edema. SKIN: Normal; no rash; no jaundice. CHIMNEY BUILDER: No focal deficits; alert and oriented times three. (Brayan Bledsoe) Assessment and Plan Plan - Acute severe abdomen pain/ SBO- complaints of acute severe persistent periumbilical pain "11 on the scale from 0-10" started started around 8 PM last night and persisted till the morning, associated with nausea and vomiting. Patient has chronic constipation and her normal bowel movement is every 2-3 days, however she did have a bowel movement bowel movement yesterday. Patient with history of hysterectomy. She states she had blueberries and pork with peanuts yesterday. She has poor dentition and doesn't chew properly. She denies previous history of this. Denies hematemesis or melena. . Abdomen/Pelvis CT 01/22/17 1. Nonspecific appearance the bowel with mild dilation of mid and distal small bowel loops measuring up to 3.1 cm. Differential considerations include partial obstruction and ileus. 2. Prominent extrarenal pelvis and mild dilation of the collecting system of the left kidney is stable when compared to prior CT scans dating back to 2013. Abdomen X-Ray 01/22/17 Small bowel obstruction pattern. No free air. Stomach is distended and the patient may benefit from nasogastric tube decompression. No definite change from the CT earlier today.GS on the case. Currently patient has NGT to LIWS and with bilious gastric out put. Pain has improved markedly. - SLE, fibromyalgia, sjogrens disease, RA , CKD per attending Plan: - NPO - NGT to LIWS - KUB in am - Case was discussed with Dr. Tony who would like to wait till the morning to consider SBFT secondary to marked improvement in abdomen pain and decreased gastric output - If no improvement, will order SBFT in the am - Supportive care - Patient seen and examined by Dr. De Leon and myself and this note is written on his behalf. 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 SBFT planned for tomorrow. Surgery on case. Keep NG to L.I.S. Discussed with pt. and nurse. Will follow, thank you (Christiano De Leon MD) Brayan Bledsoe Jan 22, 2017 17:37 Christiano De Leon MD Jan 22, 2017 20:13
--- NOTE | 2017-01-22 19:18 | EKG ---
Date Performed: 01/22/2017 Time Performed: 03:54:45 PTAGE: 51 years EKG: Sinus rhythm SEPTAL MYOCARDIAL INFARCTION - AGE INDETERMINATE ABNORMAL ECG PREVIOUS TRACING : 04/23/2014 11.55 Compared to the previous tracing, probably no significant c raulito DOCTOR: Rafa Escobar Interpretating Date/Time 01/22/2017 19:18:20
[2017-01-22 19:36] LABS: AUTOMATED NEUTROPHIL # 3.1 TH/MM3 (1.8-7.7); BASOPHIL % 0.1 % (0.0-2.0); EOSINOPHIL % 0.3 % (0.0-4.0); HEMATOCRIT 33.9 % (35.0-46.0); HEMO FLAGS DIFF FINAL; LYMPH % 11.2 % (9.0-44.0); LYMPHOCYTE # 0.4 TH/MM3 (1.0-4.8); MEAN CELL VOLUME 87.9 FL (80.0-100.0); MEAN CORPUSCULAR HGB CONC 31.8 % (32.0-36.0); MONO % 9.7 % (0.0-8.0); NEUT % 78.7 % (16.0-70.0); PLATELET COUNT 169 TH/MM3 (150-450); RED BLOOD COUNT 3.86 MIL/MM3 (4.00-5.30); RED CELL DISTRIBUTION WIDTH 12.7 % (11.6-17.2)
[2017-01-22] MEDS: HYDROCORTISONE SOD SUCCINATE 100 MG VIAL IV PUSH SCH (19:44)
[2017-01-23] VITALS: BP 130/77; PULSE 74; RESP 17; TEMP 99; O2SAT 99
[2017-01-23 02:00] VITALS: PULSE 73
--- NOTE | 2017-01-23 03:33 | RADRPT ---
EXAM DATE/TIME: 01/23/2017 02:38 [place] COMPARISON: No previous studies available for comparison. INDICATIONS : Abdominal distention. MEDICAL HISTORY : Hypertension. Lupus. SURGICAL HISTORY : Hysterectomy. ENCOUNTER: Subsequent ACUITY: 2 days PAIN SCORE: 4/10 LOCATION: Bilateral chest FINDINGS: Gastric tube tip and side-port project in the duodenum. No dilated loops of small or large bowel. T he visualized lower lungs are clear. Osseous structures are grossly intact. CONCLUSION: No dilated loops of small or large bowel. Umer Joyce MD on January 23, 2017 at 3:30 Board Certified Radiologist. This report was verified electronically.
[2017-01-23 04:00] VITALS: BP 160/72; PULSE 70; RESP 18; TEMP 99.1; O2SAT 98
[2017-01-23] MEDS ORDERED: CHLORHEXIDINE GLUCONATE 2 % 1 PACK (2 CLOTHS)(taper/protocol) TOP SCH (04:00)
[2017-01-23] MEDS: PANTOPRAZOLE SODIUM 40 MG VIAL IV PUSH SCH (04:23)
[2017-01-23] MEDS: hydrALAZINE HCL 100 MG TAB PO SCH (04:23)
[2017-01-23] MEDS: cloNIDine HCL 0.3 MG TAB PO SCH ×2 (04:23→13:48)
[2017-01-23 04:30] LABS: AUTOMATED NEUTROPHIL # 2.2 TH/MM3 (1.8-7.7); BASOPHIL % 0.1 % (0.0-2.0); EOSINOPHIL % 0.2 % (0.0-4.0); HEMO FLAGS DIFF FINAL; LYMPH % 17.8 % (9.0-44.0); LYMPHOCYTE # 0.6 TH/MM3 (1.0-4.8); MEAN CELL VOLUME 88.3 FL (80.0-100.0); MEAN CORPUSCULAR HEMOGLOBIN 28.2 PG (27.0-34.0); MEAN CORPUSCULAR HGB CONC 31.9 % (32.0-36.0); MONO % 10.3 % (0.0-8.0); NEUT % 71.6 % (16.0-70.0); PLATELET COUNT 177 TH/MM3 (150-450); RED BLOOD COUNT 3.74 MIL/MM3 (4.00-5.30); RED CELL DISTRIBUTION WIDTH 12.9 % (11.6-17.2); WHITE BLOOD COUNT 3.1 TH/MM3 (4.0-11.0)
[2017-01-23 05:37] LABS: ANION GAP 9 MEQ/L (5-15); AST (GOT) 16 U/L (15-37); BICARBONATE 26.4 MEQ/L (21.0-32.0); BLOOD UREA NITROGEN 19 MG/DL (7-18); CHLORIDE 108 MEQ/L (98-107); GLOMERULAR FILTRATION RATE 49 ML/MIN (>89); POTASSIUM 3.4 MEQ/L (3.5-5.1); SODIUM (NA) 143 MEQ/L (136-145)
[2017-01-23 05:41] LABS: ALKALINE PHOSPHATASE 61 U/L (45-117); ALT (GPT) 17 U/L (10-53); TOTAL BILIRUBIN ADULT 0.5 MG/DL (0.2-1.0)
[2017-01-23 06:00] VITALS: PULSE 73
[2017-01-23 08:00] VITALS: BP 151/86; PULSE 73; RESP 20; TEMP 97.8; O2SAT 100
[2017-01-23] MEDS ORDERED: POTASSIUM CHLORIDE 10 MEQ CONTROLLED RELEASE TAB PO ONE (08:00)
--- NOTE | 2017-01-23 08:16 | MB ---
cc: TADEO KOEHLER,ALLEN Green M.D. DATE OF CONSULTATION: 01/22/2017 REASON FOR CONSULTATION: Small bowel obstruction. PHYSICIAN REQUESTING CONSULTATION: Allen Siddiqui MD. HISTORY OF PRESENT ILLNESS: The patient is a 51 year old female who was admitted to [facility], medical Intensive Care Unit for hypertensive crisis. The patient states that 24 hours ago she developed nausea, vomiting, crampy abdominal and obstipation. The patient went to the emergency department, was found to have significant hypertension, was admitted for control hypertension. The patient has a history of lupus managed by Dr. Anaya with chronic steroids as well as surgical history including only hysterectomy which was performed approximately 10 years ago. The patient denies any previous history of small bowel obstruction. The patient does state that she ate a large amount of blueberries and fruit prior to her symptoms. She states that she cannot chew fruit, due to her losing all of her teeth with sjogren's syndrome and lupus and likely, did not chew the fruit well. The patient currently states is her pain is mostly resolved and she is no longer nauseous. The patient has been on NG tube output at this time, although she denies any flatus or bowel movements at this time. I reviewed her CT scan does show bowel obstruction in the ileum, the area of the pelvis was with a transition point, system with small bowel obstruction. The patient has a normal white blood cell count and is not tachycardic and has no fever. The patient denies any shortness of breath, chest pain or any other complaints. REVIEW OF SYSTEMS A 12 point review of systems discussed with the patient is negative. Except for the pertinent positive mentioned above in history of present illness. PAST MEDICAL HISTORY 1. Hypertension 2. Lupus syndrome 3. Chronic lupus nephritis 4. Gastroesophageal reflux disease 5. anemia. PAST SURGICAL HISTORY Hysterectomy kidney biopsy. ALLERGIES CODEINE LISINOPRIL MEDICATIONS 1. Prednisone. 2. CellCept 3. Hydralazine 4. Doxazosin 5. Clonidine 6. Protonix 7. Losartan SOCIAL HISTORY The patient denies alcohol, tobacco or illicit drug use. FAMILY HISTORY Noncontributory. PHYSICAL EXAMINATION: Vital signs: Temperature 101.2, pulse 93, blood pressure 146/83. O2 saturation 99%. IN GENERAL: The patient is a well-developed, well-nourished -[place] female in no acute stress NG tube is in place HEAD, EYES, EARS, NOSE, AND THROAT: head normocephalic, atraumatic. Pupils round and reactive to light. sclerae is anicteric the mucous membranes are moist. NECK: Neck is supple. No JVD. LUNGS: The clear to auscultation bilaterally, nonlabored breathing pattern. HEART: The heart is a Regular rate and rhythm. ABDOMEN: The abdomen is soft, minimally distended. No peritonitis. No rebound. No significant tenderness. Normal bowel sounds. Surgical scar well healed without hernia. BACK: No CVA tenderness. EXTREMITIES: No clubbing, cyanosis or edema. NEUROLOGIC EXAMINATION: The patient is awake, alert appropriate. Nonfocal peripheral exam. ASSESSMENT/PLAN The patient is a 51 year old female with history of small bowel obstruction. No signs of bowel ischemia. I feel that the patient due to her steroid use as well as her acute use of Solu-Medrol could potentially mask abdominal symptoms, however the patient does not seem to have any evidence of bowel ischemia or surgical emergency at this time. The patient also did have resolution of her pain and decreased NG tube output, likely is resolving as well. I do not recommend any surgical intervention at this time but we will follow this patient and to continue abdominal examinations. If the patient develops any signs of bowel ischemia or non resolution of the bowel obstruction she may require surgical intervention. I discussed this plan with the patient. She is in agreement with nonoperative management and we will follow along with this patient, thank you very much for this consultation. MD SAGAR Interiano/sylvie /10:47 PM /7:32 AM
[2017-01-23] MEDS: LOSARTAN 25 MG TAB PO SCH (09:00)
[2017-01-23] MEDS: SODIUM CHLORIDE 0.9% FLUSH 5 ML FLUSH FLUSH SCH (09:00)
[2017-01-23] MEDS: HYDROCORTISONE SOD SUCCINATE 100 MG VIAL IV PUSH SCH (09:01)
--- NOTE | 2017-01-23 09:25 | HHI.PR ---
Subjective Subjective Notes feels better, no NV Objective Vitals/I&O Vital Signs Date Time Temp Pulse Resp B/P Pulse Ox O2 Delivery O2 Flow Rate FiO2 01/23/17 06:00 73 01/23/17 04:00 99.1 18 160/72 98 01/22/17 12:00 Room Air Labs Laboratory Tests Test 01/22/17 01/23/17 01/23/17 19:09 03:00 03:39 White Blood Count 4.0 3.1 Red Blood Count 3.86 3.74 Hemoglobin 10.8 10.5 Hematocrit 33.9 33.0 Mean Corpuscular Volume 87.9 88.3 Mean Corpuscular Hemoglobin 28.0 28.2 Mean Corpuscular Hemoglobin 31.8 31.9 Concent Red Cell Distribution Width 12.7 12.9 Platelet Count 169 177 Mean Platelet Volume 8.5 8.9 Neutrophils (%) (Auto) 78.7 71.6 Lymphocytes (%) (Auto) 11.2 17.8 Monocytes (%) (Auto) 9.7 10.3 Eosinophils (%) (Auto) 0.3 0.2 Basophils (%) (Auto) 0.1 0.1 Neutrophils # (Auto) 3.1 2.2 Lymphocytes # (Auto) 0.4 0.6 Monocytes # (Auto) 0.4 0.3 Eosinophils # (Auto) 0.0 0.0 Basophils # (Auto) 0.0 0.0 CBC Comment DIFF FINAL DIFF FINAL Differential Comment Nasal Screen MRSA (PCR) NEGATIVE Sodium Level 143 Potassium Level 3.4 Chloride Level 108 Carbon Dioxide Level 26.4 Anion Gap 9 Blood Urea Nitrogen 19 Creatinine 1.37 Estimat Glomerular Filtration 49 Rate Random Glucose 99 Calcium Level 8.5 Total Bilirubin 0.5 Aspartate Amino Transf 16 (AST/SGOT) Alanine Aminotransferase 17 (ALT/SGPT) Alkaline Phosphatase 61 Total Protein 5.6 Albumin 3.2 Date/Time Procedure Status Source Growth 01/23/17 03:39 Aerobic Blood Culture Received Blood Peripheral Pending 01/23/17 03:39 Anaerobic Blood Culture Received Blood Peripheral Pending Cardiovascular: Regular Lungs: Clear Abdomen: Non-distended, Non-tender A/P Assessment and Plan 51yo female with PSBO, resolving, no BM yet, on diet. Attending Statement feels better, no NV Jose Tony MD Jan 23, 2017 09:25
--- NOTE | 2017-01-23 11:31 | HHI.NPPN ---
Subjective Additional Remarks Patient feeling better today, tolerating PO diet without issues today Objective Data Data 01/22/17 01/23/17 19:00 07:00 Intake Total 152 ml 833 ml Output Total 650 ml 350 ml Balance -498 ml 483 ml Intake IV Total 152 ml 833 ml Output Urine Total 400 ml 300 ml Gastric Drainage Total 50 ml Emesis 250 ml # Voids 1 1 Vital Signs Date Time Temp Pulse Resp B/P Pulse Ox O2 Delivery O2 Flow Rate FiO2 01/23/17 06:00 73 01/23/17 04:00 99.1 70 18 160/72 98 01/23/17 04:00 70 01/23/17 02:00 73 01/23/17 00:00 74 01/23/17 00:00 99.0 74 17 130/77 99 01/22/17 22:00 75 01/22/17 20:00 79 01/22/17 20:00 99.2 79 17 114/62 100 01/22/17 18:00 85 01/22/17 16:00 93 01/22/17 16:00 101.2 92 16 146/83 99 01/22/17 14:00 98 01/22/17 13:00 98.4 86 18 159/90 100 01/22/17 13:00 86 01/22/17 12:00 87 19 179/99 98 Room Air -: 01/23/17 0339 01/23/17 0339 Microbiology 01/22/17 Aerobic Blood Culture, Received Pending 01/22/17 Anaerobic Blood Culture, Received Pending 01/23/17 Aerobic Blood Culture, Received Pending 01/23/17 Anaerobic Blood Culture, Received Pending Physical Exam General Appearance: Well Developed, Well Nourished, No Acute Distress Throat Throat Exam: Oral Mucosa [place] & Moist Neck Neck Exam: Neck Supple Pulmonary Resp Exam: Clear Bilaterally Cardiology CV Exam: Regular, Normal Sinus Rhythm, Good Perfusion Gastrointestinal/Abdomen GI Exam: Soft, Non-Tender, Bowel Sounds Present Musculoskeletal MS Exam: Joints Intact Integumentary Skin Exam: Dry, Intact Extremeties Extremities Exam: No Edema Neurologic Neuro Exam: Alert, Awake, Oriented, Speech Clear Assessment/Plan Problem List: (1) Renal insufficiency Plan: Creatinine stable at 1.3, tolerating PO intake. Encourage PO fluids as tolerated. (2) Lupus nephritis Plan: Now is tolerating PO diet - will restart PO cellcept and prednisone for lupus nephritis. Renal function otherwise stable. (3) Hypertension Plan: Off cardene drip now. HTN due to inability to tolerate PO meds - will restart PO meds now, is tolerating diet. Problem Qualifiers (1) Hypertension: Qualified Code: I10 - Essential hypertension Dakota Garcia MD Jan 23, 2017 11:30
--- NOTE | 2017-01-23 11:48 | HHI.GIFU ---
Subjective Remarks Patient is resting in bed, no more pain, she had breakfast this morning, no nausea or vomiting, she is passing gas, NGT out (Amawi,Jerryawla COATING [employer] WORKER) Objective Vitals I&O Vital Signs Date Time Temp Pulse Resp B/P Pulse Ox O2 Delivery O2 Flow Rate FiO2 01/23/17 06:00 73 01/23/17 04:00 99.1 70 18 160/72 98 01/23/17 04:00 70 01/23/17 02:00 73 01/23/17 00:00 74 01/23/17 00:00 99.0 74 17 130/77 99 01/22/17 22:00 75 01/22/17 20:00 79 01/22/17 20:00 99.2 79 17 114/62 100 01/22/17 18:00 85 01/22/17 16:00 93 01/22/17 16:00 101.2 92 16 146/83 99 01/22/17 14:00 98 01/22/17 13:00 98.4 86 18 159/90 100 01/22/17 13:00 86 01/22/17 12:00 87 19 179/99 98 Room Air I/O 01/22/17 01/22/17 01/22/17 01/23/17 01/23/17 01/23/17 07:00 15:00 23:00 07:00 15:00 23:00 Intake Total 152 ml 411 ml 422 ml Output Total 250 ml 400 ml 350 ml Balance -98 ml 11 ml 72 ml Intake IV Total 152 ml 411 ml 422 ml Output Urine Total 400 ml 300 ml Gastric Drainage Total 50 ml Emesis 250 ml # Voids 1 1 Laboratory Laboratory Tests Test 01/22/17 01/23/17 01/23/17 19:09 03:00 03:39 White Blood Count 4.0 3.1 Red Blood Count 3.86 3.74 Hemoglobin 10.8 10.5 Hematocrit 33.9 33.0 Mean Corpuscular Volume 87.9 88.3 Mean Corpuscular Hemoglobin 28.0 28.2 Mean Corpuscular Hemoglobin 31.8 31.9 Concent Red Cell Distribution Width 12.7 12.9 Platelet Count 169 177 Mean Platelet Volume 8.5 8.9 Neutrophils (%) (Auto) 78.7 71.6 Lymphocytes (%) (Auto) 11.2 17.8 Monocytes (%) (Auto) 9.7 10.3 Eosinophils (%) (Auto) 0.3 0.2 Basophils (%) (Auto) 0.1 0.1 Neutrophils # (Auto) 3.1 2.2 Lymphocytes # (Auto) 0.4 0.6 Monocytes # (Auto) 0.4 0.3 Eosinophils # (Auto) 0.0 0.0 Basophils # (Auto) 0.0 0.0 CBC Comment DIFF FINAL DIFF FINAL Differential Comment Nasal Screen MRSA (PCR) NEGATIVE Sodium Level 143 Potassium Level 3.4 Chloride Level 108 Carbon Dioxide Level 26.4 Anion Gap 9 Blood Urea Nitrogen 19 Creatinine 1.37 Estimat Glomerular Filtration 49 Rate Random Glucose 99 Calcium Level 8.5 Total Bilirubin 0.5 Aspartate Amino Transf 16 (AST/SGOT) Alanine Aminotransferase 17 (ALT/SGPT) Alkaline Phosphatase 61 Total Protein 5.6 Albumin 3.2 Date/Time Procedure Status Source Growth 01/23/17 03:39 Aerobic Blood Culture Received Blood Peripheral Pending 01/23/17 03:39 Anaerobic Blood Culture Received Blood Peripheral Pending Imaging Last Impressions Chest X-Ray 01/22/17818 Signed Impressions: Service Date/Time: Sunday, January 22, 2017 08:46 - CONCLUSION: Questionable small left upper lobe nodule. Noncontrast chest CT recommended. Normal heart size. Francisco Javier Gurrola MD Abdomen X-Ray 01/22/17818 Signed Impressions: Service Date/Time: Sunday, January 22, 2017 08:51 - CONCLUSION: Small bowel obstruction pattern. No free air. Stomach is distended and the patient may benefit from nasogastric tube decompression. No definite change from the CT earlier today. Francisco Javier Gurrola MD Abdomen/Pelvis CT 01/22/17 0408 Signed Impressions: Service Date/Time: Sunday, January 22, 2017 04:24 - CONCLUSION: 1. Nonspecific appearance the bowel with mild dilation of mid and distal small bowel loops measuring up to 3.1 cm. Differential considerations include partial obstruction and ileus. 2. Prominent extrarenal pelvis and mild dilation of the collecting system of the left kidney is stable when compared to prior CT scans dating back to 2014. No calcified renal stones. Umer Joyce MD Physical Exam HEENT: Pupils round and reactive to light; normocephalic; atraumatic; no jaundice. NECK: Neck is supple, no JVD, no lymphadenopathy. CHEST: Chest is clear to auscultation and percussion. CARDIAC: Regular rate and rhythm with no murmur gallop or rubs. ABDOMEN: Soft, nondistended, nontender; no hepatosplenomegaly; bowel sounds are present in all four quadrants. EXTREMITIES: No clubbing, cyanosis, or edema. SKIN: Normal; no rash; no jaundice. 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 (Brayan Bledsoe) Assessment and Plan Plan - Acute severe abdomen pain/ SBO- Resolved, tolerating diet, no nausea or vomiting, passing gas, NGT out Abdomen X-Ray 01/23/17 No dilation of small or large loops Abdomen/Pelvis CT 01/22/17 1. Nonspecific appearance the bowel with mild dilation of mid and distal small bowel loops measuring up to 3.1 cm. Differential considerations include partial obstruction and ileus. 2. Prominent extrarenal pelvis and mild dilation of the collecting system of the left kidney is stable when compared to prior CT scans dating back to 2013. Abdomen X-Ray 01/22/17 Small bowel obstruction pattern. No free air. Stomach is distended and the patient may benefit from nasogastric tube decompression. No definite change from the CT earlier today.GS on the case. - SLE, fibromyalgia, sjogrens disease, RA , CKD per attending Plan: - IVA - Resolved sbo - GI will sign off - Supportive care - Patient seen and examined by Dr. De Leon and myself and this note is written on his behalf. (rBayan Bledsoe) Physician Comments Seen and examined with COATING LINE WORKER, SBO resolved. Advance diet as tolerated. GI fu upon dc. Will sign off. Thank you (Christiano De Leon MD) Brayan Bledsoe Jan 23, 2017 11:48 Christiano De Leon MD Jan 23, 2017 13:12
[2017-01-23 12:00] VITALS: BP 160/95; PULSE 77; RESP 20; TEMP 99.1; O2SAT 100
[2017-01-23] MEDS ORDERED: predniSONE 1 MG TAB PO SCH (12:00)
[2017-01-23] MEDS ORDERED: predniSONE 5 MG TAB PO SCH (12:00)
[2017-01-23] MEDS ORDERED: LABETALOL HCL 200 MG TAB PO SCH (13:00)
[2017-01-23] MEDS ORDERED: hydrALAZINE HCL 100 MG TAB PO SCH (14:00)
--- NOTE | 2017-01-23 14:13 | HHI.PR ---
Subjective Remarks feeling better tolerated po no nausea or vomiting + flatus, no adominal pain BP 130/80 Objective Vitals Vital Signs Date Time Temp Pulse Resp B/P Pulse Ox O2 Delivery O2 Flow Rate FiO2 01/23/17 06:00 73 01/23/17 04:00 99.1 70 18 160/72 98 01/23/17 04:00 70 01/23/17 02:00 73 01/23/17 00:00 74 01/23/17 00:00 99.0 74 17 130/77 99 01/22/17 22:00 75 01/22/17 20:00 79 01/22/17 20:00 99.2 79 17 114/62 100 01/22/17 18:00 85 01/22/17 16:00 93 01/22/17 16:00 101.2 92 16 146/83 99 I/O 01/22/17 01/22/17 01/22/17 01/23/17 01/23/17 01/23/17 07:00 15:00 23:00 07:00 15:00 23:00 Intake Total 152 ml 411 ml 422 ml Output Total 250 ml 400 ml 350 ml Balance -98 ml 11 ml 72 ml Intake IV Total 152 ml 411 ml 422 ml Output Urine Total 400 ml 300 ml Gastric Drainage Total 50 ml Emesis 250 ml # Voids 1 1 Result Diagram: 01/23/179 01/23/17338 Imaging Last Impressions Chest X-Ray 01/22/17818 Signed Impressions: Service Date/Time: Sunday, January 22, 2017 08:46 - CONCLUSION: Questionable small left upper lobe nodule. Noncontrast chest CT recommended. Normal heart size. Francisco Javier Gurrola MD Abdomen X-Ray 01/22/17818 Signed Impressions: Service Date/Time: Sunday, January 22, 2017 08:51 - CONCLUSION: Small bowel obstruction pattern. No free air. Stomach is distended and the patient may benefit from nasogastric tube decompression. No definite change from the CT earlier today. Francisco Javier Gurrola MD Abdomen/Pelvis CT 01/22/17 0408 Signed Impressions: Service Date/Time: Sunday, January 22, 2017 04:24 - CONCLUSION: 1. Nonspecific appearance the bowel with mild dilation of mid and distal small bowel loops measuring up to 3.1 cm. Differential considerations include partial obstruction and ileus. 2. Prominent extrarenal pelvis and mild dilation of the collecting system of the left kidney is stable when compared to prior CT scans dating back to 2013. No calcified renal stones. Umer Joyce MD Objective Remarks awake and alert, oriented x 3 anicteric lungs clear regular rhythm abdomen soft, nontender extremities no edema neuro exam- unremarkable A/P Assessment and Plan 51-year-old female with known history of hypertension, chronic kidney see the disease presenting with SBO- Nausea vomiting CT shows partial small bowel obstruction- resolved tolerating diet. Advise her to have high fibre diet Hypokalemia-replaced Chronic constipation Colace 100 mg po bid patient is scheduled to have a colonoscopy as OP Hypertensive urgency -Imrpoved restarted on po meds- continue and adjust History of SLE Chronic kidney disease secondary to lupus nephritis or hypertensive kidney disease change back to maintenance Prednsione 5 mg every other day- home dose GERD on PP Bilateral teds SCDs for DVT prophylaxis DC home today diet heart healthy, high fibre activity as tolerated continue home meds FF up with Dr. Anival Martinez as OP Ina Siddiqui MD Jan 23, 2017 14:13
[2017-01-23] MEDS ORDERED: PRED5TAB PO (14:30)
[2017-01-23] MEDS ORDERED: MYCOPHENOLATE MOFETIL 500 MG TAB PO SCH (18:00)
[2017-01-23] MEDS ORDERED: DOXAZOSIN MESYLATE 4 MG TAB PO SCH (21:00)
[2017-01-24] MEDS ORDERED: predniSONE 5 MG TAB PO SCH (12:00)
[2017-01-29] MEDS ORDERED: REMOVE OLD PATCH T-DERMAL SCH (10:30)
== END 2017-01-23 15:15 | disposition home or self-care (01) | DRG 389 ==
LOC: NEPC 03:20 → NEDA 05:36 → HIMW 12:30
PROVIDERS: ADMIT Internal Medicine; ATTEND Internal Medicine
DX: K56.60 Unspecified intestinal obstruction (principal); I13.0 Hypertensive heart and chronic kidney disease with heart failure and stage 1 through stage 4 chronic kidney disease, or unspecified chronic kidney disease; M32.14 Glomerular disease in systemic lupus erythematosus; I50.9 Heart failure, unspecified; I16.9 Hypertensive crisis, unspecified; N18.3 Chronic kidney disease, stage 3 (moderate); M06.9 Rheumatoid arthritis, unspecified; M35.00 Sjogren syndrome, unspecified; I73.00 Raynaud's syndrome without gangrene; E87.6 Hypokalemia; M79.7 Fibromyalgia; K21.9 Gastro-esophageal reflux disease without esophagitis; Z22.322 Carrier or suspected carrier of Methicillin resistant Staphylococcus aureus; Z80.0 Family history of malignant neoplasm of digestive organs; Z88.5 Allergy status to narcotic agent
CPT/HCPCS: 71020; 74000; 74020; 74176; 80053; 80307; 81001; 83605; 83690; 85025; 87040; 87641; 93005; 96361; 96374; 96375; 96376; C9113; J0780; J1720; J2270; J2405; J7030; J7050; J7512